=== PATIENT | female | born 1985 | race Caucasian/White ===

== ENCOUNTER 2020-06-04 17:33 | Emergency (ER) | payer OTHER ==
[~2020-06-04] VITALS: Ht 167.6 cm; Wt 97.7 kg
--- NOTE | 2020-06-04 17:49 | PHYS DOC ---
Past History Past Medical History: Kidney Stones Past Medical History G3, T3, Vag x2, C section for Breech Past Surgical History: Cholecystectomy, Gastric Bypass, Tubal ligation General Adult HPI: HPI: "...I ve been really sick.. with the diarrhea and cramping since yesterday.. I ve gone maybe 50 diarrheas x today....I am dehydrated...my stomach and gut a making bubbles, gas and terrible moist noises..." " I usually do not get sick... With this diarrhea washed out. Patient is a 35 year old female who presents with above hx and complaints constant diarrhea since yesterday. Increase abdomen cramping. Estimates she has stools more than 30 times a day stools appear to be brown liquid no bleeding. No history of travel recently outside the [place] area. No specific ill contacts. Patient does work as a [employer] system but has not been in contact with children yet. Did make a trip to [place] 2 months ago. No ill contacts there. No history of bad food intake. No history immunosuppression. No family members currently sick. has not been recently overseas. Patient normally follows at with [facility]. No contact with ill animals. Is on city [place]. Has had multiple abdomen surgeries including gastric duodenal bypass for weight loss, cholecystectomy, tubal ligation, and . No history of bowel obstructions or ileus or adhesions from previous surgeries. Does get a yearly flu vaccination. No other specific ill contacts. There is a neighborhood dog that was recently diagnosed with Giardia. Contact with this dog is very limited. Review of Systems: Review of Systems: Constitutional: Denies fever or chills Eyes: Denies change in visual acuity HENT: Denies nasal congestion or sore throat Respiratory: Denies cough or shortness of breath Cardiovascular: Denies chest pain or edema GI: Complains of generalized abdominal pain, nausea,. Denies vomiting, bloody stools. Complaints of florid diarrhea : Denies dysuria Musculoskeletal: Denies back pain or joint pain Integument: Denies rash Neurologic: Denies headache, focal weakness or sensory changes Endocrine: Denies polyuria or polydipsia Lymphatic: Denies swollen glands Psychiatric: Denies depression or anxiety Heart Score: Risk Factors: Risk Factors: DM, Current or recent (<one month) smoker, HTN, HLP, family history of CAD, obesity. Risk Scores: Score 0 - 3: 2.5% MACE over next 6 weeks - Discharge Home Score 4 - 6: 20.3% MACE over next 6 weeks - Admit for Clinical Observation Score 7 - 10: 72.7% MACE over next 6 weeks - Early Invasive Strategies Family History: Family History: Noncontributory Current Medications: Current Meds: See nursing for home meds Allergies: Allergies: Oxycodone sometimes makes her nauseated has been able to take morphine without problem Physical Exam: PE: Constitutional: , well nourished, moderate acute distress, non-toxic appearance. [] HENT: Normocephalic, atraumatic, bilateral external ears normal, oropharynx dry, no oral exudates, nose normal. [] Eyes: PERRLA, EOMI, conjunctiva normal, no discharge. [] Neck: Normal range of motion, no tenderness, supple, no stridor. [] Cardiovascular:Heart rate regular rhythm, no murmur [] Lungs & Thorax: Bilateral breath sounds equal at apex auscultation [] Abdomen: Bowel sounds hyperactive, soft, generalized tenderness, no masses, no pulsatile masses. [Multiple surgery scars. No localized area of pain on rebound pain appears to be generalized throughout the abdomen Skin: Warm, dry, no erythema, no rash. [] Back: No tenderness, no CVA tenderness. [] Extremities: No tenderness, no cyanosis, no clubbing, ROM intact, no edema. [] No psoas sign. Neurologic: Alert and oriented X 3, normal motor function, normal sensory function, no focal deficits noted. [] Psychologic: Affect anxious, judgement normal, mood normal. [] EKG: EKG: [] Radiology/Procedures: Radiology/Procedures: [address] [address] IMAGING REPORT Signed PATIENT: KARIN HANLEY ACCOUNT: [id number] : 1985 LOCATION: ER AGE: 35 SEX: F EXAM STATUS: REG ER ORD. PHYSICIAN: ERUM VÁSQUEZ MD REASON: hematuria, abd. pain , possible stone on acute abd. PROCEDURE: CT ABDOMEN PELVIS WO CONTRAST CT ABDOMEN PELVIS WO CONTRAST INDICATION: hematuria, abd. pain , possible stone on acute abd. Diarrhea. EXAM: Noncontrast CT of the abdomen and pelvis. Coronal and sagittal reformatted images were performed. PQRS compliance statement: One or more of the following individualized dose reduction techniques were utilized for this examination: 1. Automated exposure control 2. Adjustment of the mA and/or kV according to patient size 3. Use of iterative reconstruction technique COMPARISON: Acute abdomen series 06/04/2020 FINDINGS: No free air, free fluid, or fluid collection. Lower chest: The visualized lower lungs are aerated. No pleural or pericardial effusion. ABDOMEN: Liver: The noncontrast liver is homogeneous in attenuation. Gallbladder and biliary: Normal gallbladder without radiopaque stone. Normal caliber bile ducts. Spleen: Normal spleen. Pancreas: The noncontrast pancreas is homogeneous in attenuation without peripancreatic inflammatory changes. Adrenal glands: Normal adrenal glands. Kidneys and ureters: No hydronephrosis. Bilateral nonobstructive renal calculi measuring up to the left 3 mm on the right. GI tract: Postsurgical changes of sleeve gastrectomy. No dilated large or small bowel. Fluid throughout the proximal and mid colon. Normal appendix. Vascular structures: Normal caliber abdominal aorta. Lymph nodes: No lymphadenopathy in the abdomen or pelvis. PELVIS: Genitourinary system: Urinary bladder is decompressed. Uterus is present. SKELETAL STRUCTURES AND SOFT TISSUES: Degenerative changes at L4-5 and L5-S1 IMPRESSION: 1. No hydronephrosis. Nonobstructive bilateral renal calculi. 2. Fluid throughout the proximal and mid colon, consistent with patient's history of diarrhea. Electronically signed by: Chica James MD (06/04/2020 9:07 PM) [facility] DICTATED AND SIGNED BY: CHICA JAMES MD DATE: 06/04/202106 CC: PAM MORGAN TIMOTHY H MD ~ My interpretation of acute abdomen x-ray shows no free air in the diaphragm. Multiple surgery andrey. Nonspecific bowel gas pattern. [ [address] [address] IMAGING REPORT Signed PATIENT: KARIN HANLEY ACCOUNT: [id number] : 1985 LOCATION: ER AGE: 35 SEX: F EXAM STATUS: REG ER ORD. PHYSICIAN: ERUM VÁSQUEZ MD REASON: pain, n, d, PROCEDURE: ACUTE ABDOMEN SERIES Examination: Acute abdomen series HISTORY: History of pain, nausea, diarrhea COMPARISON: None available. FINDINGS: The cardiomediastinal silhouette grossly appears unremarkable. The lungs are clear. Cholecystectomy clips identified. The bowel gas pattern appears unremarkable. There is a calcification projecting in the left kidney region measuring 7 mm could be a calculus. IMPRESSION: 1. Unremarkable gas pattern. 2. 7 mm calcification projecting in the left mid abdomen could be left renal calculus. Electronically signed by: Nato Silverman MD (06/04/2020 8:12 PM) [id number] DICTATED AND SIGNED BY: NATO SILVERMAN MD DATE: 06/04/202011 CC: ELEN MORGAN; ERUM VÁSQUEZ MD ~ Course & Med Decision Making: Course & Med Decision Making Pertinent Labs and Imaging studies reviewed. (See chart for details) Patient stay on a clear fluid diet only for next 48 hours. No solids. No milk products. Must allow bowel rest push fruit juices that are clear, popsicles, Gatorade, Pedialyte, Jell-O, sweet tea etc. must allow bowel rest. Take Zofran 8 mg with 4 times a day for nausea and active vomiting. Follow-up pending cultures or labs here. Follow-up with primary care. Return if any concerns. May do a dose of Pepto-Bismol [id number] up to 4 times a day for diarrhea episodes. Review ED labs and workup with primary. Consider work-up for Giardia if this episode of diarrhea does not clear promptly or trial mebendazole. Impression: 1. Acute Gastroenteritis 2. Dehydrated 3. Mild elevation of alk.phos. 159. [] Dragon Disclaimer: Martir Disclaimer: This electronic medical record was generated, in whole or in part, using a voice recognition dictation system. Departure Departure: Disposition: HOME/RESIDENCE PRIOR TO ADM Condition: STABLE Referrals: ELEN MORGAN (PCP) Scripts Hydrocodone/Ibuprofen (HYDROCODONE-IBUPROFEN 7.5-200 ) 1 Each Tablet 1 TAB PO PRN Q6HRS PRN for PAIN, #30 TAB 0 Refills Prov: ERUM VÁSQUEZ MD 06/04/20 Bismuth Subsalicylate (PEPTO-BISMOL) 525 Mg/15 Ml Oral.susp 525 MG PO QIDPRN PRN for DIARRHEA, #120 LIQUID Prov: ERUM VÁSQUEZ MD 06/04/20 Ondansetron Hcl (ZOFRAN) 8 Mg Tablet 8 MG PO QIDPRN for n/v, #30 BOTTLE Prov: ERUM VÁSQUEZ MD 06/04/20 Justification of Admission: Justification of Admission: Justification of Admission Dx: N/A Dragon Disclaimer This chart was dictated in whole or in part using Voice Recognition software in a busy, high-work load, and often noisy Emergency Department environment. It may contain unintended and wholly unrecognized errors or omissions. Dragon Disclaimer This chart was dictated in whole or in part using Voice Recognition software in a busy, high-work load, and often noisy Emergency Department environment. It may contain unintended and wholly unrecognized errors or omissions. ERUM VÁSQUEZ MD Jun 04, 2020 17:49
[2020-06-04] MEDS ORDERED: IV RINGERS SOLUTION,LACTATED 1,000 ML IV SCH (17:50)
[2020-06-04] MEDS ORDERED: ONDANSETRON PF 4 MG/2 ML VIAL. IVP ONE (18:00)
[2020-06-04] MEDS ORDERED: FAMOTIDINE 20 MG/2 ML VIAL IVP ONE (18:00)
[2020-06-04] MEDS ORDERED: oxyCODONE/APAP 5/325 1 TAB TABLET PO ONE (18:00)
[2020-06-04 18:26] LABS: BASO % 0 % (0-3); EOS # 0.1 x10^3/uL (0.0-0.7); EOS % 1 % (0-3); HEMATOCRIT 43.1 % (36.0-47.0); LYMPH # 1.3 x10^3/uL (1.0-4.8); LYMPH % 16 % (24-48); MEAN CORPUSCULAR HEMOGLOBIN 27 pg (25-35); MEAN CORPUSCULAR HGB CONC 32 g/dL (31-37); MEAN CORPUSCULAR VOLUME 83 fL (79-100); MONO # 0.6 x10^3/uL (0.0-1.1); MONO % 8 % (0-9); NEUT # 5.8 x10^3uL (1.8-7.7); NEUT % 75 % (31-73); PLATELET COUNT 217 x10^3/uL (140-400); RED BLOOD COUNT 5.18 x10^6/uL (3.50-5.40); RED CELL DISTRIBUTION WIDTH 15.1 % (11.5-14.5); WHITE BLOOD COUNT 7.8 x10^3/uL (4.0-11.0)
[2020-06-04 18:33] LABS: CALCIUM 8.5 mg/dL (8.5-10.1); GFR 62.7; POTASSIUM 3.7 mmol/L (3.5-5.1)
[2020-06-04 18:40] LABS: DIRECT BILIRUBIN 0.2 mg/dL (0.0-0.2); TOTAL BILIRUBIN 0.7 mg/dL (0.2-1.0); TOTAL PROTEIN 7.5 g/dL (6.4-8.2)
[2020-06-04 18:43] LABS: BARBITURATES NEG (NEG); BENZODIAZEPINES NEG (NEG); CANNABINOIDS NEG (NEG); COCAINE NEG (NEG); METHADONE NEG (NEG); OPIATES NEG (NEG); PHENCYCLIDINE NEG (NEG)
[2020-06-04 18:44] LABS: BACTERIA,URINE MOD /HPF (0-FEW); BILIRUBIN,URINE NEG (NEG); CLARITY,URINE CLOUDY; COLOR,URINE YELLOW; GLUCOSE,URINE NEG (NEG); NITRITE,URINE NEG (NEG); SQUAMOUS EPITHELIAL CELL,UR MANY /LPF; UROBILINOGEN,URINE 0.2 mg/dL (0.2 mg/dL)
[2020-06-04 18:46] LABS: AMPHETAMINE/METHAMPHETAMINE NEG (NEG)
[2020-06-04] MEDS ORDERED: MORPHINE SULFATE 10 MG/ML SYRINGE. SQ ONE (19:30)
[2020-06-04] MEDS ORDERED: IV RINGERS SOLUTION,LACTATED 1,000 ML IV ONE (19:30)
[2020-06-04] MEDS ORDERED: BISMUTH SUBSALICYLATE 262 MG/15 ML ORAL.SUSP 236ML BOTTLE. PO PRN (19:45)
[2020-06-04] MEDS ORDERED: BISMUTH SUBSALICYLATE 262 MG TAB.CHEW PO ONE (20:00)
[2020-06-04] MEDS ORDERED: HYDR-1179 PO (20:09)
[2020-06-04] MEDS ORDERED: ONDA8TAB9 PO (20:09)
[2020-06-04] MEDS ORDERED: BISM525O8 PO (20:09)
[2020-06-04] MEDS ORDERED: BISMUTH SUBSALICYLATE 262 MG TAB.CHEW PO PRN (20:15)
--- NOTE | 2020-06-04 20:16 | RAD ---
Examination: Acute abdomen series HISTORY: History of pain, nausea, diarrhea COMPARISON: None available. FINDINGS: The cardiomediastinal silhouette grossly appears unremarkable. The lungs are clear. Cholecystectomy clips identified. The bowel gas pattern appears unremarkable. There is a calcification projecting in the left kidney region measuring 7 mm could be a calculus. IMPRESSION: 1. Unremarkable gas pattern. 2. 7 mm calcification projecting in the left mid abdomen could be left renal calculus. Electronically signed by: Nato Silverman MD (06/04/2020 8:12 PM) [id number]
[2020-06-04] MEDS ORDERED: IOHEXOL 240 MG/ML 50ML VIAL. PO ONE (20:30)
[2020-06-04] MEDS ORDERED: IOHEXOL 300 MG/ML 75 ML VIAL. IV ONE (20:30)
[2020-06-04] MEDS ORDERED: CONTRAST GIVEN. MC PRN (20:45)
[2020-06-04] MEDS ORDERED: KETOROLAC 30 MG/ML VIAL. IVP ONE (20:45)
[2020-06-04 20:59] VITALS: BP 131/75
--- NOTE | 2020-06-04 21:10 | RAD ---
CT ABDOMEN PELVIS WO CONTRAST INDICATION: hematuria, abd. pain , possible stone on acute abd. Diarrhea. EXAM: Noncontrast CT of the abdomen and pelvis. Coronal and sagittal reformatted images were performed. PQRS compliance statement: One or more of the following individualized dose reduction techniques were utilized for this examination: 1. Automated exposure control 2. Adjustment of the mA and/or kV according to patient size 3. Use of iterative reconstruction technique COMPARISON: Acute abdomen series 06/04/2020 FINDINGS: No free air, free fluid, or fluid collection. Lower chest: The visualized lower lungs are aerated. No pleural or pericardial effusion. ABDOMEN: Liver: The noncontrast liver is homogeneous in attenuation. Gallbladder and biliary: Normal gallbladder without radiopaque stone. Normal caliber bile ducts. Spleen: Normal spleen. Pancreas: The noncontrast pancreas is homogeneous in attenuation without peripancreatic inflammatory changes. Adrenal glands: Normal adrenal glands. Kidneys and ureters: No hydronephrosis. Bilateral nonobstructive renal calculi measuring up to the left 3 mm on the right. GI tract: Postsurgical changes of sleeve gastrectomy. No dilated large or small bowel. Fluid throughout the proximal and mid colon. Normal appendix. Vascular structures: Normal caliber abdominal aorta. Lymph nodes: No lymphadenopathy in the abdomen or pelvis. PELVIS: Genitourinary system: Urinary bladder is decompressed. Uterus is present. SKELETAL STRUCTURES AND SOFT TISSUES: Degenerative changes at L4-5 and L5-S1 IMPRESSION: 1. No hydronephrosis. Nonobstructive bilateral renal calculi. 2. Fluid throughout the proximal and mid colon, consistent with patient's history of diarrhea. Electronically signed by: Tucker James MD (06/04/2020 9:07 PM) [facility]
== END 2020-06-04 21:55 | disposition home or self-care (01) ==
LOC: ER 17:33
DX: K52.9 Noninfective gastroenteritis and colitis, unspecified (principal); E86.0 Dehydration; R79.89 Other specified abnormal findings of blood chemistry; Z87.442 Personal history of urinary calculi; Z90.49 Acquired absence of other specified parts of digestive tract; Z98.51 Tubal ligation status; Z98.84 Bariatric surgery status
CPT/HCPCS: 36415; 74022; 74176; 80048; 80076; 80307; 81001; 82150; 83690; 85025; 87086; 96361; 96372; 96374; 96375; 99285; J1885; J2270; J2405; J3490; J7120